=== PATIENT | female | born 1970 | race African-American/Black ===

== ENCOUNTER 2017-04-25 14:44 | Emergency (ER) | payer MEDICAID ==
[~2017-04-25] VITALS: Ht 154.9 cm; Wt 81.0 kg
[2017-04-25] MEDS ORDERED: LISI40TA4 PO (14:49)
[2017-04-25] MEDS ORDERED: METF850T2 PO (14:49)
[2017-04-25] MEDS ORDERED: SODIUM BICARBONATE 8.4% MEQ/ML 50ML VIAL IV NR (18:15)
[2017-04-25] MEDS ORDERED: HYDROCODONE/ACETAMINOPHEN 5/325MG TABLET PO ONE (18:15)
[2017-04-25] MEDS ORDERED: LIDOCAINE HCL 1% 20ML VIAL (Pyxis) INJ MC ONE (18:15)
[2017-04-25] MEDS ORDERED: IBUPROFEN 600MG TABLET PO ONE (18:15)
[2017-04-25] MEDS ORDERED: TETANUS, DIPHTHERIA, PERTUSSIS VAC/PF 0.5ML (>7YR OLD) IM ONE (18:15)
[2017-04-25 18:18] VITALS: BP 144/93
== END 2017-04-25 19:22 | disposition home or self-care (01) ==
LOC: ER 15:29
DX: L03.011 Cellulitis of right finger (principal); I10 Essential (primary) hypertension; E11.9 Type 2 diabetes mellitus without complications
CPT/HCPCS: 10060; 90471; 90715; 99283; J3490